=== PATIENT | female | born 2000 | race Caucasian/White ===

== ENCOUNTER 2024-01-25 21:24 | Emergency (ER) | payer BC ==
[~2024-01-25] VITALS: Ht 157.5 cm; Wt 108.9 kg
[2024-01-25 21:33] VITALS: BP_SYST 142; PULSE 94; RESP 18; TEMP 97.3; O2SAT 95
[2024-01-25] MEDS ORDERED: ACET-2634 PO (21:58)
[2024-01-25] MEDS ORDERED: AUG875 PO (21:58)
[2024-01-25] MEDS: AMOXICILLIN/POTASSIUM CLAV 875 MG TABLET PO ONE (22:22)
== END 2024-01-25 22:32 | disposition home or self-care (01) ==
LOC: SED 21:24
DX: S61.231A Puncture wound without foreign body of left index finger without damage to nail, initial encounter (principal); Z79.899 Other long term (current) drug therapy; Z79.2 Long term (current) use of antibiotics; W55.11XA Bitten by horse, initial encounter; Y93.89 Activity, other specified; Y92.098 Other place in other non-institutional residence as the place of occurrence of the external cause; Y99.8 Other external cause status
CPT/HCPCS: 73140; 99283